=== PATIENT | male | born 1980 | race Two or more races ===

== ENCOUNTER 2025-04-03 06:27 | Inpatient (IN) | payer MEDICAID, OTHER ==
[~2025-04-03] VITALS: Ht 185.4 cm; Wt 125.5 kg
[2025-04-03] VITALS (7 sets, daily range): BP systolic 133–148; BP diastolic 79–101; PULSE 64–76; RESP 16–20; TEMP 98–98.3; O2SAT 93–97
--- NOTE | 2025-04-03 07:25 | ED.PDOC ---
GI ASSESSMENT HPI Comments 44 y/o M, with PMHx of HTN, presents to the ED for CC of abdominal pain. Patient states, he has been experiencing suprapubic abdominal pain with associated symptoms of nausea, vomiting, and diarrhea sudden onset, Friday (04/01/25). Patient describes stools to be loss, mucousy, and dark in appearance. Patient denies any recent changes in diet, hematemesis, hematochezia, fever, fatigue, weakness, or dizziness. No other associated symptoms, modifiers, recent injuries or sick contacts are present at this time. Chief Complaint: Abdominal Pain Time Seen by MD: 07:00 Reviewed Notes: Nurses Notes, Medications, Allergies Information Source: Patient Mode of Arrival: Ambulatory Timing: Days Duration: Since onset Prehospital treatment: None Quality: Cramping Vomitus: Watery Stool: Tarry Severity: Moderate Recent Hx of: None Pain Location: Suprapubic Modifying Factors: Nothing Associated sign and symptoms: Nausea, Vomiting, Diarrhea, Melena, Abdominal Pain Past Medical History PAST MEDICAL HISTORY: HTN Surgical History: Unknown Family History Family History: Unknown Social History Smoker: Unknown Alcohol: Unknown Drugs: Unknown Lives In: Home Constitutional: denies: chills, diaphoresis, fatigue, fever, malaise, sweats, weakness, others EENTM: denies: blurred vision, double vision, ear bleeding, ear discharge, ear drainage, ear pain, ear ringing, eye pain, eye redness, hearing loss, mouth pain, mouth swelling, nasal discharge, nose bleeding, nose congestion, nose pain, photophobia, tearing, throat pain, throat swelling, voice changes, others Respiratory: denies: cough, hemoptysis, orthopnea, SOB at rest, shortness of breath, SOB with excertion, stridor, wheezing, others Cardiovascular: denies: chest pain, dizzy spells, diaphoresis, Dyspnea on exertion, edema, irregular heart beat, left arm pain, lightheadedness, palpitations, PND, syncope, others Gastrointestinal: reports: diarrhea, melena, nausea, vomiting; denies: abdomen distended, abdominal pain, blood streaked bowels, constipated, dysphagia, difficulty swallowing, hematemesis, poor appetite, poor fluid intake, rectal bleeding, rectal pain, others Genitourinary: denies: burning, dysuria, flank pain, frequency, hematuria, incontinence, penile discharge, penile sore, pain, testicle pain, testicle swelling, urgency, others Neurological: denies: dizziness, fainting, headache, left sided numbness, left sided weakness, numbness, paresthesia, pre-existing deficit, right sided numbness, right sided weakness, seizure, speech problems, tingling, tremors, weakness, others Musculoskeletal: denies: back pain, gout, joint pain, joint swelling, muscle pain, muscle stiffness, neck pain, others Integumetry: denies: bruises, change in color, change in hair/nails, dryness, laceration, lesions, lumps, rash, wounds, others Allergic/Immunocompromised: denies: Difficulty Healing, Frequent Infections, Hives, Itching, others Hematologic/Lymphatic: denies: anemia, blood clots, easy bleeding, easy bruising, swollen glands, others Endocrine: denies: excessive hunger, excessive sweating, excessive thirst, excessive urination, flushing, intolerance to cold, intolerance to heat, unexplained weight gain, unexplained weight loss, others Psychiatric: denies: anxiety, bipolar disorder, depression, hopeless, panic disorder, schizophrenia, sleepless, suicidal, others All Other Systems: Reviewed and Negative Physical Exam General Appearance: Moderate Distress HEENT: Normal ENT Inspection, Pharynx Normal, TMs Normal Neck: Full Range of Motion, Non-Tender, Normal, Normal Inspection Respiratory: Chest Non-Tender, Lungs Clear, No Accessory Muscle Use, No Respiratory Distress, Normal Breath Sounds Cardiovascular: No Edema, No JVD, No Murmur, No Gallop, Normal Peripheral Pulses, Regular Rate/Rhythm Breast Exam: Deferred Gastrointestinal: Diffuse Genitalia: Deferred Pelvic: Deferred Rectal: Deferred Extremities: No calf tenderness, Normal capillary refill, Normal inspection, Normal range of motion, Non-tender, No pedal edema Musculoskeletal : Apperance: Normal Neurologic: Alert, continuous improvement director II-XII nml as Tested, No Motor Deficits, Normal Affect, Normal Mood, No Sensory Deficits Cerebellar Function: Normal Reflexes: Normal Skin: Dry, Normal Color, Warm Peripheral Pulses: 3+ Radial (R), 3+ Radial (L) Lymphatic: No Adenopathy Was a procedure done? Was a procedure done?: No GI differential Dx Differential Diagnosis: Constipation, Diverticular disease, Esophagitis, Gastritis/PUD, Gastroenteritis, GI hemorrhage, Inflammatory BD, Food Poisoning, Bacterial, Viral X-Ray, Labs, Meds, VS Vital Signs Date Time Temp Pulse Resp B/P (MAP) Pulse Ox O2 Delivery O2 Flow Rate FiO2 04/03/25 06:30 99.0 79 15 162/101 95 99.0 Lab Test 04/03/25 07:50 Range/Units Sodium Level Pending Potassium Level Pending Chloride Level Pending Carbon Dioxide Level Pending Anion Gap Pending Blood Urea Nitrogen Pending Creatinine Pending Glomerular Filtration Rate Calc Pending BUN/Creatinine Ratio Pending Serum Glucose Pending Calcium Level Pending Patient alert. Complaining of abdominal pain. Mild fever. Blood pressure elevated. Was given clonidine. He is slightly obese. Saturation pristine on room air. Explained to the patient. Continue monitoring. [place] [id number] Ph: [phone] DIAGNOSTIC IMAGING Diagnostic Imaging Report : [id number] Signed PATIENT: AN ROLDAN ACCT: [id number] UNIT: [id number] : 1980 LOC: ER ROOM / BED: / AGE / SEX: 44 / M ADM STATUS: REG ER SERVICE [id number] ORDERING PHYSICIAN: ISIDRO MARQUEZ MD PROCEDURE(s): ABPL - CT AB PEL WO CON-NO ORAL OR IV REASON: colitis ORDER NUMBER(s): [id number], ACCESSION NUMBER(s): [id number] CT abdomen and pelvis without contrast INDICATION: colitis TECHNIQUE: Serial axial images were performed through the abdomen and pelvis and then reformatted in the sagittal and coronal plane. All CT scans at this medical facility are performed using dose modulation techniques as appropriate to a performed exam including the following: Automated exposure control was utilized; adjustment of the MA and/or KvP according to patient size; and use of iterative reconstruction technique. FINDINGS: Liver and spleen are normal in size without focal mass. No renal masses, stones or hydronephrosis. No masses or enlargement of the adrenal glands or pancreas. No biliary dilatation. No gallstones. No distention of bowel loops to suggest mechanical obstruction of bowel. The appendix is normal in appearance. No free fluid. Within the pelvis, bladder is smooth walled without stones. No abnormal masses or fluid collections. IMPRESSION: 1. Study limited by lack of IV contrast. There may be slight thickening of the trimble of the sigmoid colon and descending colon although these are nondistended on the current exam. No abscess, free fluid, or obstruction. Computed Tomographic Radiation Dosimetry Report: Total CTDI vol = 24.03mGy Total DLP = 24.03mGy-cm Low dose protocols were performed. ATED BY: RAMESH LI MD DICTATED DATE/TIME: 04/03/25804 SIGNED BY: RAMESH LI MD SIGNED DATE/TIME: 04/03/25804 CC: Time of 1ST Reevaluation: 07:30 Reevaluation 1ST: Unchanged Patient Education/Counseling: Diagnosis, Treatment Family Education/Counseling: No Family Present SEPSIS Sepsis Screen Date sepsis recognized/suspect: Apr 03, 2025 Time Sepsis recognized/suspect: 633 Recent Procedure: No On Antibiotic Therapy: No Respiratory Rate >20: No Heart Rate >90: No Temp<36 C (96.8 F) or >38.3 C: No SBP <90 or MAP <65 mmHG: No New Acute Mental Status Change: No Is the patient on CPAP, BIPAP,: No Physician Orders Ct Ab Pel Wo Con-No Oral Or Iv (04/03/25 07:11) Basic Metabolic Panel (04/03/25 07:11) Vital Signs Date Time Temp Pulse Resp B/P (MAP) Pulse Ox O2 Delivery O2 Flow Rate FiO2 04/03/25 06:30 99.0 79 15 162/101 95 99.0 Departure 1 Departure Time of Disposition: 07:37 Impression: Primary Impression: Acute abdominal pain Disposition: 01 HOME / SELF CARE / HOMELESS Condition: Good Discharged With: Self Critical Care Note Critical Care Time?: No Stability Stability form required: No Heart Score Heart Score: Heart Score Response (Comments) Value History N/A 0 EKG N/A 0 Age N/A 0 Risk Factors N/A 0 Troponin N/A 0 Total 0 I personally scribed for ISIDRO MARQUEZ MD ([email or web address]) on 04/03/25 at 07:25. Electronically submitted by Magy Cedillo ([email or web address]). I personally scribed for ISIDRO MARQUEZ MD ([email or web address]) on 04/03/25 at 08:16. Electronically submitted by Magy Cedillo ([email or web address]). ISIDRO MARQUEZ MD Apr 03, 2025 07:25
--- NOTE | 2025-04-03 08:07 | DVH ---
CT abdomen and pelvis without contrast INDICATION: colitis TECHNIQUE: Serial axial images were performed through the abdomen and pelvis and then reformatted in the sagittal and coronal plane. All CT scans at this medical facility are performed using dose modula tion techniques as appropriate to a performed exam including the following: Automated exposure contro l was utilized; adjustment of the MA and/or KvP according to patient size; and use of iterative recon struction technique. FINDINGS: Liver and spleen are normal in size without focal mass. No renal masses, stones or hydronep hrosis. No masses or enlargement of the adrenal glands or pancreas. No biliary dilatation. No gallsto lee. No distention of bowel loops to suggest mechanical obstruction of bowel. The appendix is normal in appearance. No free fluid. Within the pelvis, bladder is smooth walled without stones. No abnormal masses or fluid collections. IMPRESSION: 1. Study limited by lack of IV contrast. There may be slight thickening of the trimble of the sigmoid c olon and descending colon although these are nondistended on the current exam. No abscess, free fluid , or obstruction. Computed Tomographic Radiation Dosimetry Report: Total CTDI vol = 24.03mGy Total DLP = 24.03mGy-cm Lo w dose protocols were performed.
[2025-04-03 08:10] LABS: Chloride 104 mmol/L (98-107); Potassium 4.5 mmol/L (3.5-5.1); Sodium 138 mmol/L (136-145)
[2025-04-03 08:11] LABS: Anion Gap 7 (5-15); Carbon Dioxide 27 mmol/L (20-31)
[2025-04-03 08:16] LABS: BUN/Creatinine Ratio 6.1 (10.0-20.0); Calcium 10.5 mg/dL (8.7-10.4)
[2025-04-03 08:19] LABS: Blood Urea Nitrogen 7 mg/dL (9-23); Glucose 109 mg/dL (74-106)
[2025-04-03 09:02] LABS: Hematocrit 47.4 % (41.0-53.0); Hemoglobin 16.1 g/dL (13.5-17.5); Mean Corpuscular Hemoglobin 30.2 pg (28.0-32.0); Mean Corpuscular Volume 88.9 fL (80.0-100.0); Nucleated Red Blood Cells % 0.1 %
[2025-04-03] MEDS: SODIUM CHLORIDE 0.9% 1,000 ML IV ONE ×2 (09:24→10:33)
[2025-04-03] MEDS ORDERED: HYDROcodone-ACET 5/325MG TAB PO PRN (10:45)
[2025-04-03] MEDS ORDERED: ALBUTEROL SULF 2.5 MG/0.5ML(0.5%) NEB SOLN NEB PRN (10:45)
[2025-04-03] MEDS ORDERED: DIPHENOXYLATE W/ATROPINE 2.5 MG TAB PO PRN (10:45)
[2025-04-03] MEDS ORDERED: hydrALAZINE HCL 20 MG/ML VL IV PRN (10:45)
[2025-04-03] MEDS ORDERED: ONDANSETRON HCL 4 MG/2 ML VIAL IV PRN (10:45)
[2025-04-03] MEDS ORDERED: ACETAMINOPHEN 500 MG TAB or CAP PO PRN (10:45)
[2025-04-03] MEDS ORDERED: IPRATROPIUM BROM 0.5 MG/2.5ML INH SOL NEB PRN (10:45)
--- NOTE | 2025-04-03 10:45 | DVHHP2 ---
History of Present Illness Reason for Visit: Abdominal pain and diarrhea History of Present Illness Patient is a 44-year-old male admitted in the hospital with reports of abdominal pain and diarrhea since Friday afternoon. Worsening of the symptoms prompted him to come in the emergency room. Patient does report having chills, denies having any fevers,, but denies having nausea or vomiting. He denies taking any [id number] remedies. The patient does report eating takeout food several days prior to his the onset of his symptoms. Significant history of the patient includes hypertension and prediabetes. Cardiovascular: HTN Endocrine: Other (Prediabetes) Past Surgical History: None ALCOHOL: none Drugs: None Lives: with Family Past Social History Patient states he vapes Review of Systems Constitutional: Yes: Chills Eyes: No: Pain, Vision change, Conjunctivae inflammation, Eyelid inflammation, Other, Redness ENT: No: Ear pain, Ear discharge, Nose pain, Nose discharge, Nose congestion, Mouth pain, Mouth swelling, Throat pain, Throat swelling, Other Respiratory: No: Cough, Dry, Shortness of breath, SOB with excertion, Wheezing, Hemoptysis, Pleuritic Pain, Sputum, Wheezing, Other Cardiovascular: No: Chest Pain, Palpitations, Orthopnea, Paroxysmal Noc. Dyspnea, Edema, Lt Headedness, Other Gastrointestinal: Abdominal Pain, Diarrhea Genitourinary: No Dysuria, No Frequency, No Incontinence, No Hematuria, No Retention, No Other Musculoskeletal: No: other, neck pain, shoulder pain, arm pain, back pain, hand pain, leg pain, foot pain Skin: No: Rash, Lesions, Jaundice, Bruising, Other Neurological: No: Weakness, Numbness, Incoordination, Change in speech, Confusion, Seizures, Other Allergies: Coded Allergies: NO KNOWN ALLERGIES (Unverified , 04/03/25) Exam Vital Signs Vital Signs Date Time Temp Pulse Resp B/P (MAP) Pulse Ox O2 Delivery O2 Flow Rate FiO2 04/03/25 10:31 157/102 04/03/25 09:33 98.0 69 17 97 98.0 04/03/25 09:31 Room Air* 0 21 General Appearance: Alert, Oriented X3, Cooperative, mild distress HEENT: Atraumatic, PERRLA Respiratory: Clear to auscultation, Normal air movement Cardiovascular: Normal S1, Normal S2 Abdominal: Normal bowel sounds, Soft Extremities: No clubbing, No cyanosis Skin: No rashes, No breakdown Neuro: Normal gait Psych/Mental Status: Mental status NL, Mood NL Labs/Xrays Labs Test 04/03/25 07:50 Range/Units White Blood Count 9.8 4.4-10.8 10^3/uL Red Blood Count 5.33 4.5-5.90 10^6/uL Hemoglobin 16.1 13.5-17.5 g/dL Hematocrit 47.4 41.0-53.0 % Mean Corpuscular Volume 88.9 80.0-100.0 fL Mean Corpuscular Hemoglobin 30.2 28.0-32.0 pg Mean Corpuscular Hemoglobin Concent 34.0 32.0-36.0 g/dL Red Cell Distribution Width 13.7 11.8-14.3 % Platelet Count 234 140-450 10^3/uL Mean Platelet Volume 8.4 6.9-10.8 fL Neutrophils (%) (Auto) 70.4 37.0-80.0 % Lymphocytes (%) (Auto) 18.5 10.0-50.0 % Monocytes (%) (Auto) 10.5 0.0-12.0 % Eosinophils (%) (Auto) 0.2 0.0-7.0 % Basophils (%) (Auto) 0.4 0.0-2.0 % Neutrophils # (Auto) 6.9 1.6-8.6 10 ^3/uL Lymphocytes # (Auto) 1.8 0.4-5.4 10 ^3/uL Monocytes # (Auto) 1.0 0-1.3 10 ^3/uL Eosinophils # (Auto) 0 0-0.8 10 ^3/uL Basophils # (Auto) 0 0-0.2 10 ^3/uL Nucleated Red Blood Cells 0.1 % Sodium Level 138 136-145 mmol/L Potassium Level 4.5 3.5-5.1 mmol/L Chloride Level 104 98-107 mmol/L Carbon Dioxide Level 27 20-31 mmol/L Anion Gap 7 5-15 Blood Urea Nitrogen 7 L 9-23 mg/dL Creatinine 1.15 0.700-1.30 mg/dL Glomerular Filtration Rate Calc 81 >90 mL/min BUN/Creatinine Ratio 6.1 L 10.0-20.0 Serum Glucose 109 H 74-106 mg/dL Calcium Level 10.5 H 8.7-10.4 mg/dL SEPSIS Sepsis Screen Date sepsis recognized/suspect: Apr 03, 2025 Time Sepsis recognized/suspect: 633 Recent Procedure: No On Antibiotic Therapy: No Respiratory Rate >20: No Heart Rate >90: No Temp<36 C (96.8 F) or >38.3 C: No SBP <90 or MAP <65 mmHG: No New Acute Mental Status Change: No Is the patient on CPAP, BIPAP,: No Physician Orders Ct Ab Pel Wo Con-No Oral Or Iv (04/03/25 07:11) Sodium Chloride 0.9% (04/03/25 08:45) Vital Signs Date Time Temp Pulse Resp B/P (MAP) Pulse Ox O2 Delivery O2 Flow Rate FiO2 04/03/25 10:31 157/102 04/03/25 09:33 98.0 69 17 183/119 (140) 97 98.0 04/03/25 09:31 Room Air* 0 21 04/03/25 09:24 183/119 04/03/25 06:30 99.0 79 15 162/101 95 99.0 Laboratory Tests Test 04/03/25 07:50 White Blood Count 9.8 10^3/uL (4.4-10.8) Medications Medications Dose Ordered Sig/Trisha Route Start Time Stop Time Status Last Admin Dose Admin Ceftriaxone Sodium 50 ml @ 100 mls/hr ONCE ONCE IV 04/03/25 08:45 04/03/25 09:14 DC 04/03/25 09:25 100 MLS/HR Clonidine HCl 0.2 mg ONCE ONCE PO 04/03/25 09:15 04/03/25 09:16 DC 04/03/25 09:24 0.2 MG Metronidazole 100 ml @ 100 mls/hr ONCE ONCE IV 04/03/25 08:45 04/03/25 09:44 DC 04/03/25 09:25 100 MLS/HR Sodium Chloride 1,000 ml @ 150 mls/hr Q6H40M ONCE IV 04/03/25 08:45 04/03/25 15:24 04/03/25 10:33 150 MLS/HR Sodium Chloride 1,000 ml @ 1,000 mls/hr Q1H ONCE IV 04/03/25 08:45 04/03/25 09:44 DC 04/03/25 09:24 1,000 MLS/HR Assessment/Plan Assessment/Plan Impression: -acute colitis -obesity -primary hypertension -nicotine dependence Plan: -admit to Medical/Surgical unit -IV hydration -clear liquid diet -IV antibiotic therapy: Rocephin, Flagyl -Lomotil prn diarrhea -stool culture -repeat labs in a.m. Total time spent with patient discussing and formulating plan of care: 35 minutes. This medical document was created using an electronic medical record system with [employer] dictation system. Although this document has been carefully reviewed, there may still be some phonetic and typographical errors. These areas are purely typographical due to imperfections of the software programs, and do not reflect any compromise in the patient's medical care. Plan discussed with: Patient, Other (RN) Date of Service: Apr 03, 2025 Billing Provider: SHEREE CHANDRA NP Common Visit Codes: [id number] INP/OBS CARE (HIGH) SHEREE CHANDRA NP Apr 03, 2025 10:45
[2025-04-03] MEDS: SODIUM CHLORIDE 0.9% 1,000 ML IV SCH (11:32)
[2025-04-04] MEDS ORDERED: LISI40TA16 PO (00:37)
[2025-04-04 05:00] VITALS: BP 141/93; PULSE 77; RESP 17; TEMP 98.2; O2SAT 94
[2025-04-04 07:06] LABS: Anion Gap 8 (5-15); Carbon Dioxide 28 mmol/L (20-31); Chloride 105 mmol/L (98-107); Potassium 4.3 mmol/L (3.5-5.1); Sodium 141 mmol/L (136-145)
[2025-04-04 07:07] LABS: Calcium 9.9 mg/dL (8.7-10.4)
[2025-04-04 07:11] LABS: Glucose 99 mg/dL (74-106)
[2025-04-04 07:12] LABS: BUN/Creatinine Ratio 9.3 (10.0-20.0); Blood Urea Nitrogen 10 mg/dL (9-23)
[2025-04-04 07:14] LABS: Cholesterol 154 mg/dL (< 200)
[2025-04-04 07:20] LABS: HDL Cholesterol 30 mg/dL (40-59); Triglycerides 176 mg/dL (< 150)
[2025-04-04 08:00] VITALS: PULSE 88; RESP 18; O2SAT 98
[2025-04-04 08:32] VITALS: BP 152/99; PULSE 66; RESP 17; TEMP 98.9; O2SAT 95
--- NOTE | 2025-04-04 10:31 | DVHDS2 ---
Discharge Summary Date of Admission Apr 03, 2025 at 10:37 Date of Discharge: Apr 04, 2025 Labs/Diagnostic Data: Laboratory Results Test 04/04/25 06:25 04/03/25 07:50 04/03/25 07:40 Sodium Level 141 mmol/L (136-145) Potassium Level 4.3 mmol/L (3.5-5.1) Chloride Level 105 mmol/L (98-107) Carbon Dioxide Level 28 mmol/L (20-31) Anion Gap 8 (5-15) Blood Urea Nitrogen 10 mg/dL (9-23) Creatinine 1.07 mg/dL (0.700-1.30) Glomerular Filtration Rate Calc 89 mL/min (>90) BUN/Creatinine Ratio 9.3 (10.0-20.0) Serum Glucose 99 mg/dL (74-106) Hemoglobin A1c 6.2 % A1C (<5.7) Calcium Level 9.9 mg/dL (8.7-10.4) Triglycerides Level 176 mg/dL (< 150) Cholesterol Level 154 mg/dL (< 200) LDL Cholesterol 97 mg/dL (< 100) HDL Cholesterol 30 mg/dL (40-59) White Blood Count 9.8 10^3/uL (4.4-10.8) Red Blood Count 5.33 10^6/uL (4.5-5.90) Hemoglobin 16.1 g/dL (13.5-17.5) Hematocrit 47.4 % (41.0-53.0) Mean Corpuscular Volume 88.9 fL (80.0-100.0) Mean Corpuscular Hemoglobin 30.2 pg (28.0-32.0) Mean Corpuscular Hemoglobin Concent 34.0 g/dL (32.0-36.0) Red Cell Distribution Width 13.7 % (11.8-14.3) Platelet Count 234 10^3/uL (140-450) Mean Platelet Volume 8.4 fL (6.9-10.8) Neutrophils (%) (Auto) 70.4 % (37.0-80.0) Lymphocytes (%) (Auto) 18.5 % (10.0-50.0) Monocytes (%) (Auto) 10.5 % (0.0-12.0) Eosinophils (%) (Auto) 0.2 % (0.0-7.0) Basophils (%) (Auto) 0.4 % (0.0-2.0) Neutrophils # (Auto) 6.9 10 ^3/uL (1.6-8.6) Lymphocytes # (Auto) 1.8 10 ^3/uL (0.4-5.4) Monocytes # (Auto) 1.0 10 ^3/uL (0-1.3) Eosinophils # (Auto) 0 10 ^3/uL (0-0.8) Basophils # (Auto) 0 10 ^3/uL (0-0.2) Nucleated Red Blood Cells 0.1 % Other Laboratory Tests 04/04/25 06:25 04/03/25 07:50 Brief Hx & Hospital Course: see dictated note Condition at Discharge: Good Final Diagnosis/Problems List abd pain Discharge Disposition: Home Discharge Instruct/Medications Diet: Cardiac 2g Na,low cholest Activity: No Restrictions, As Tolerated Follow Up/Referral: fu with pcp in 1-2 wks Medications: resume home meds Miscellaneous Medications Lisinopril (Lisinopril), 1 TAB PO, (Reported) Discharge Statement: "Patient was advised to return to the ER or call 911 if any headaches, dizziness, shortness of breath, chest pain, abdominal pain, bleeding, fevers, or worsening of medical condition. Patient was counseled about treatment plan, medications, possible side effects, patientverbalized understanding. All questions were answered to the best of my ability. This discharge took greater then 30 minutes in planning, reviewing documentation, counseling the patient, and discussing with other team members." ASSESSMENT ASSESSMENT Assessment abd pain Date of Service: Apr 04, 2025 Billing Provider: ELIZABET STRICKLAND MD Common Visit Codes: 03726-NHL/OBS DISCH DAY >30min ELIZABET STRICKLAND MD Apr 04, 2025 10:31
--- NOTE | 2025-04-04 10:39 | DVHDS ---
DATE OF DISCHARGE: 04/04/2025 HISTORY OF PRESENT ILLNESS: The patient is a 44-year-old gentleman who was admitted with history of abdominal pain and diarrhea accompanied by chills. The patient has history of hypertension. HOSPITAL COURSE: The patient had a CT of abdomen and pelvis that showed evidence of slightly thickened trimble of the sigmoid colon. The patient's chemistries were within normal limits. CBC was normal. The patient currently is doing well and is tolerating all that. He will be discharged home to resume his home medications and follow up with his primary in the next 1-2 weeks. FINAL DIAGNOSES: * Likely acute gastroenteritis. * Dehydration. * Obesity. * Hypertension. * Prediabetes. Time spent in discharge planning and review of plan with the patient and nursing was 37 minutes. MD BHARTI Lopez/CORNELIA TID: [id number] RECEIPT: [id number]
[2025-04-04 11:00] VITALS: O2SAT 96; O2SAT 97
[2025-04-04 13:00] VITALS: BP 156/104; PULSE 95; RESP 18; TEMP 98.2; O2SAT 95
== END 2025-04-04 14:28 | disposition home or self-care (01) | DRG 249 ==
LOC: ER 06:27 → OVERFLOW 10:37 → CENTRAL 22:37
PROVIDERS: ADMIT Internal Medicine; ATTEND Internal Medicine
DX: A09 Infectious gastroenteritis and colitis, unspecified (principal); E66.9 Obesity, unspecified; E86.0 Dehydration; F17.290 Nicotine dependence, other tobacco product, uncomplicated; I10 Essential (primary) hypertension; R73.03 Prediabetes; Z68.36 Body mass index [BMI] 36.0-36.9, adult
CPT/HCPCS: 36415; 74176; 80048; 80061; 83036; 85025; 85048; 87045; 87427; 94640; 96360; G0378; J3490